=== PATIENT | female | born 1960 ===

== ENCOUNTER → 2016-07-11 | Day surgery (SDC) | payer BC ==
[~2016-07-11] MED LIST: Acetaminophen TAB* 325 MG PO PRN; Buffered Lidocaine 1% SYR 3ML* 3 ML/SYR SYRINGE INTRADERM ONE; Bupivacaine 0.5% SDV PF* 30 ML VIAL ONE; Dexamethasone IV* 4 MG/ML 1 ML (4 MG) ONE; DiMENhydriNATE IV* 50 MG/ML VIAL IV PUSH PRN; Famotidine IV* 10 MG/ML 2 ML (20 mg) ONE; HYDROcodone/ACETAMIN 5-325 MG* 1 TAB ONE; HYDROcodone/ACETAMIN 5-325 MG* 1 TAB PO PRN; KETAMINE HCL* 50 MG/ML 10 ML VIAL ONE; Ketorolac INJ* 30 MG/ML 1 ML VIAL ONE; Lidocaine 2% MPF* 2 ML VIAL ONE; Lidocaine 2% PF* 10 ML AMP ONE; Midazolam* 1 MG/ML 2 ML VIAL (2 MG) ONE; NS 0.9% 1000 ML* 1,000 ML IV SCH; Ondansetron INJ* 2 MG/ML VIAL IV PRN; Propofol* 10 MG/ML 20 ML BTL IV PUSH ONE; ceFAZolin 2 GM PREMIX (*) 2 GM/50 ML BAG IVPB ONE; fentaNYL* 50 MCG/ML 2 ML VIAL (100 MCG VIAL) IV PRN; fentaNYL* 50 MCG/ML 2 ML VIAL (100 MCG VIAL) ONE
[2016-07-11 12:30] VITALS: BP 136/80
--- NOTE | 2016-07-12 01:18 | OP ---
DATE OF OPERATION: 07/11/16 - [facility] DATE OF : 64 ATTENDING SURGEON: Marcello Kaplan MD [place] SPECIALIST: No patient assistant. ANESTHESIOLOGIST: Dr. Razo ANESTHESIA: MAC PRE-OP DIAGNOSIS: Hallux rigidus, right forefoot. POST-OP DIAGNOSIS: Hallux rigidus, right forefoot. OPERATIVE PROCEDURE: Cheilectomy, right forefoot. DESCRIPTION OF PROCEDURE: The patient was taken to the operating room where a longitudinal incision was made over the dorsum of the first MTP joint. The medial and lateral flap was raised to allow visualization of the dorsal aspect of the joint. Micro sagittal saw was used to remove the dorsal osteophyte and a rongeur for the rim osteophyte of the proximal phalanx. We used a 0.045 C- wire to drill some of the subcondylar bone to allow revascularization. We then repaired the capsule with [id number] 3-0 Vicryl sutures and 4-0 nylon for the skin. Compression dressing applied. [id number] #: [id number] MTDD
== END | disposition home or self-care (01) ==
LOC: OR 07:42
PROVIDERS: ATTEND Orthopaedic Surgery
DX: M20.21 Hallux rigidus, right foot (principal); J45.909 Unspecified asthma, uncomplicated
CPT/HCPCS: 88304; 88311; J0690; J1100; J1885; J2001; J2250; J2704; J3010